=== PATIENT | male | born 1955 | race Caucasian/White ===

== ENCOUNTER 2021-03-23 10:24 | Outpatient (CLI) | payer MEDICARE, SELFPAY ==
--- NOTE | ~2021-03-23 | MR_ITS ---
EXAMINATION: MR brain/brain stem wo/w con EXAM DATE: 03/23/2021 11:29 INDICATION: Syncope. TECHNIQUE: Magnetic resonance imaging (MRI) of the brain/brain stem obtained without contrast. Sagit zamzam T1, axial diffusion, gradient echo (T2*), T1, T2, FLAIR sequences obtained. Patient was then inj ected with 13 cc intravenous Multihance contrast. Axial and coronal postcontrast T1 weighted sequence s obtained. There is no prior study for comparison. FINDINGS: There are no areas of restricted diffusion to suggest acute infarction. There is no acute hemorrhage seen on the T2*, a hemosiderin sensitive sequence. Minimal microangiopathy. No intraparenc hymal brain mass. The ventricles are normal in size. There are no extra-axial collections. Flow voi ds are seen in the cerebral arteries on the T2-weighted sequences consistent with their expected bran ncy. The orbits are unremarkable. Soft tissue is unremarkable. Mild ethmoid mucoperiosteal thicke daren. There are no areas of abnormal enhancement on the post contrast images. IMPRESSION: 1. Minimal microangiopathy. 2. No acute findings. Reviewed, dictated and finalized at location A.
[2021-03-23 10:57] LABS: Estimated Glomerular Filt Rate > 60
--- NOTE | 2021-03-24 12:43 | WPDNEUROLOGY ---
Neurology EEG Report General Information Date of Study: 03/23/21 TEST eeg DIAGNOSIS Syncope CONDITION OF RECORDING awake drowsy and sleep EEG NUMBER [id number] CLINICAL HISTORY patient reported he had been having spells of extreme dizziness for over a year. Episodes could last a long time before passing. His stated he lost consciousness a couple of times. EEG DESCRIPTION basic resting occipital frequency consists of large amount of well-organized medium voltage 9 to 10 hertz per 2nd alpha admixed with low-voltage 15 to 18 hertz per 2nd beta posteriorly. Low-voltage beta activity seen diffusely with waxing and waning posterior alpha rhythm during drowsiness and bilateral symmetrical sleep activity seen during sleep. Hyperventilation not done. Photic stimulation produced normal drive. Non paroxysmal. Nonfocal. Nonlateralizing. IMPRESSION Normal record ,if diagnosis of partial complex seizure or localization related epilepsy is concerned sleep-deprived EEG recommended.
== END 2021-03-23 10:25 | disposition home or self-care (01) ==
PROVIDERS: PCP Internal Medicine; Visit Provider Physician Assistant Medical
DX: R55 Syncope and collapse (principal)
CPT/HCPCS: 70553; 95816; A9577